=== PATIENT | female | born 1995 | race Caucasian/White ===

== ENCOUNTER 2017-10-19 11:11 | Emergency (ER) | payer OTHER ==
[~2017-10-19] VITALS: Ht 165.1 cm; Wt 79.4 kg
[2017-10-19 11:26] VITALS: BP 127/84; Ht 165.1 cm; Wt 79.4 kg
== END 2017-10-19 12:53 | disposition home or self-care (01) ==
LOC: ED 11:11
DX: R21 Rash and other nonspecific skin eruption (principal)